=== PATIENT | female | born 2000 | race African-American/Black ===

== ENCOUNTER 2025-04-20 19:02 | Inpatient (IN) | payer BC ==
[~2025-04-20] VITALS: Ht 162.6 cm; Wt 105.3 kg
[2025-04-20] MEDS: IV NS 0.9% 1,000 ML BAG IV ONE (21:02)
[2025-04-20 21:18] LABS: INR 1.03 (0.91-1.10)
[2025-04-20 21:20] LABS: ASPARTATE AMINOTRANSFERASE 16.0 U/L (15-37); CALCIUM, SERUM 8.6 mg/dL (8.5-10.1); CREATININE 0.6 mg/dL (0.6-1.3); SODIUM SERUM 138.0 mmol/L (136-145); TOTAL PROTEIN, SERUM 7.7 g/dL (6.4-8.2); UREA NITROGEN, BLOOD 15.0 mg/dL (7-18)
[2025-04-20 21:28] LABS: PLATELET COUNT (AUTO) 498 K/uL (150-450); RED BLOOD CELL COUNT(AUTO) 3.19 MIL/uL (4.0-5.2); RED CELL DISTRIBUTION WIDTH 20.8 % (11.5-15.0); WHITE BLOOD COUNT (AUTO) 15.4 K/uL (4.3-11.0)
[2025-04-20] MEDS ORDERED: TRANEXAMIC ACID 1,000 MG/10 ML VIAL ONE (22:12)
[2025-04-20 22:30] LABS: PREGNANCY TEST URINE QUAL NEGATIVE (NEGATIVE)
[2025-04-20 22:32] LABS: LYMPHOCYTES % (MANUAL) 14 % (16-48); MONOCYTES % (MANUAL) 4 % (0-11.0); NEUTROPHILS % (MANUAL) 82 (42-76); PLATELET ESTIMATE INCREASED
[2025-04-20] MEDS: TRANEXAMIC ACID 1,000 MG/10 ML VIAL IR ONE (22:38)
[2025-04-20] MEDS: IV NS 0.9% 1,000 ML IV SCH (23:00)
[2025-04-20] MEDS ORDERED: ONDANSETRON HCL/PF 4 MG/2 ML VIAL IVP PRN (23:00)
[2025-04-20] MEDS ORDERED: MAGNESIUM HYDROXIDE 30 ML UDC PO PRN (23:00)
[2025-04-20] MEDS ORDERED: MAG HYDROX/AL HYDROX/SIMETH 30 ML UDC PO PRN (23:00)
[2025-04-20] MEDS ORDERED: ACETAMINOPHEN 325 MG TABLET PO PRN (23:00)
[2025-04-20 23:07] LABS: IRON, SERUM 8 ug/dl (50-175)
[2025-04-21] VITALS (19 sets, daily range): BP systolic 91–120; BP diastolic 50–71; TEMP 97.5–98.8; O2SAT 98–100
[2025-04-21 08:10] LABS: APPEARANCE,URINE TURBID (CLEAR); BLOOD, URINE 3+ Ery/uL (NEGATIVE); LEUKOCYTE ESTERASE ,URINE NEGATIVE (NEGATIVE); NITRITE, URINE NEGATIVE (NEGATIVE); UGLUCOSE TRACE mg/dL (NEGATIVE)
[2025-04-21 12:57] LABS: ADD URINE CULTURE YES
[2025-04-21 12:58] LABS: SQUAMOUS EPITHELIAL CELL,UR Few /HPF (None Seen); URINE AMORPHOUS URATE Many /HPF (None Seen)
[2025-04-21 13:23] LABS: CALCIUM, SERUM 8.3 mg/dL (8.5-10.1); CREATININE 0.5 mg/dL (0.6-1.3); PHOSPHORUS 3.6 mg/dL (2.5-4.9); SODIUM SERUM 140.0 mmol/L (136-145); UREA NITROGEN, BLOOD 9.0 mg/dL (7-18)
[2025-04-21 13:32] LABS: PLATELET COUNT (AUTO) 356 K/uL (150-450); RED BLOOD CELL COUNT(AUTO) 3.97 MIL/uL (4.0-5.2); RED CELL DISTRIBUTION WIDTH 35.8 % (11.5-15.0); WHITE BLOOD COUNT (AUTO) 11.2 K/uL (4.3-11.0)
[2025-04-21] MEDS: SOD FERRIC GLUC 125 MG in IV NS 0.9% 100 ML IV SCH (13:49)
[2025-04-21] MEDS ORDERED: SOD FERRIC GLUC 125 MG in IV NS 0.9% 100 ML IV SCH (14:00)
[2025-04-21] MEDS: NITROFURANTOIN/MONOHYDRATE MACROCRYSTALS 100 MG CAPSULE PO SCH (20:36)
[2025-04-22 01:10] VITALS: BP 125/58; TEMP 98.1; O2SAT 99
[2025-04-22 07:19] LABS: PLATELET COUNT (AUTO) 344 K/uL (150-450); RED BLOOD CELL COUNT(AUTO) 3.94 MIL/uL (4.0-5.2); RED CELL DISTRIBUTION WIDTH 35.0 % (11.5-15.0); WHITE BLOOD COUNT (AUTO) 9.7 K/uL (4.3-11.0)
[2025-04-22 07:45] LABS: CALCIUM, SERUM 8.3 mg/dL (8.5-10.1); CREATININE 0.6 mg/dL (0.6-1.3); PHOSPHORUS 4.4 mg/dL (2.5-4.9); SODIUM SERUM 143.0 mmol/L (136-145); UREA NITROGEN, BLOOD 11.0 mg/dL (7-18)
[2025-04-22 08:00] VITALS: BP 104/60; TEMP 98.2; O2SAT 100
[2025-04-22 08:10] LABS: EOSINOPHILS % (MANUAL) 1 % (0-4); LYMPHOCYTES % (MANUAL) 36 % (16-48); MONOCYTES % (MANUAL) 5 % (0-11.0); NEUTROPHILS % (MANUAL) 58 (42-76); PLATELET ESTIMATE ADEQUATE
[2025-04-22] MEDS ORDERED: FERR325T23 PO (13:23)
[2025-04-22] MEDS ORDERED: ASCO500C18 PO (13:23)
[2025-04-22] MEDS ORDERED: MEDR10TA73 PO (13:23)
[2025-04-22] MEDS ORDERED: NITR100C6 PO (13:23)
== END 2025-04-22 15:55 | disposition home or self-care (01) | DRG 760 ==
LOC: ER 19:05 → MED 04-21 02:07
PROVIDERS: ATTEND Nurse Practitioner Family
PROC: 30233N1 Transfusion of Nonautologous Red Blood Cells into Peripheral Vein, Percutaneous Approach (ICD-10-PCS; principal; 2025-04-20)
DX: N92.0 Excessive and frequent menstruation with regular cycle (principal); D62 Acute posthemorrhagic anemia; N39.0 Urinary tract infection, site not specified; D50.9 Iron deficiency anemia, unspecified; E86.1 Hypovolemia; D72.829 Elevated white blood cell count, unspecified; G90.89 Other disorders of autonomic nervous system; E66.9 Obesity, unspecified; Z68.39 Body mass index [BMI] 39.0-39.9, adult
CPT/HCPCS: 36415; 76856-TC; 80048-TC; 80053-TC; 81001; 82728-TC; 83540-TC; 83735-TC; 84100-TC; 84703-TC; 85025-TC; 85027-TC; 85610-TC; 86850-TC; 87086-TC; A4223; G0378; J2916; J7030; J7040; J7050; P9016